=== PATIENT | male | born 1990 | race Hispanic/Latino ===

== ENCOUNTER 2018-03-19 11:41 | Emergency (ER) | payer OTHER ==
[2018-03-19 14:03] LABS: BASO # 0.1 K/uL (0.0-0.2); BASO % 1.2 % (0.0-2.0); EOS # 0.2 K/uL (0.0-0.7); EOS % 2.9 % (0.0-4.0); LYMPH # 1.8 K/uL (1.0-4.3); LYMPH % 24.1 % (20.0-40.0); MEAN CORPUSCULAR HEMOGLOBIN 29.3 pg (27.0-31.0); MEAN CORPUSCULAR HGB CONC 33.6 g/dL (33.0-37.0); MEAN PLATELET VOLUME 8.7 fL (7.2-11.7); MONO # 0.5 K/uL (0.0-0.8); MONO % 6.7 % (0.0-10.0); NEUT % 65.1 % (50.0-75.0); RBC 4.45 Mil/uL (4.40-5.90); RED CELL DISTRIBUTION WIDTH 13.2 % (11.5-14.5); WHITE BLOOD COUNT 7.7 K/uL (4.8-10.8)
[2018-03-19 14:29] LABS: ALB/GLOB RATIO 1.1 (1.0-2.1); ALBUMIN 3.9 g/dL (3.5-5.0); ALT/SGPT 66 U/L (21-72); AST/SGOT 44 U/L (17-59); BLOOD UREA NITROGEN 19 mg/dL (9-20); CALCIUM 8.8 mg/dl (8.6-10.4); GFR NON-AFRICAN AMERICAN > 60
[2018-03-19] MEDS ORDERED: Tmp-Smz 800 mg-160 mg DS Tab PO STA (14:36)
--- NOTE | 2018-03-19 14:36 | C.PDOC ---
History Of Present Illness 28 y/o male, in police custody, comes in complaining of bilateral forearm and right hand pain. Patient admits to using intravenous drugs. Denies fever. Patient was seen in another hospital 3-4 weeks ago but left prior to completion of treatment. Patient did not seek medical attention after that ED visit. Denies any other associated symptoms. Chief Complaint (Nursing): Upper Extremity Problem/Injury History Per: Patient History/Exam Limitations: no limitations Onset/Duration Of Symptoms: Days Current Symptoms Are (Timing): Still Present Past Medical History Reviewed: Historical Data, Nursing Documentation, Vital Signs Vital Signs: Last Vital Signs Temp 97.8 F 03/19/18 11:54 Pulse 65 03/19/18 11:54 Resp 17 03/19/18 11:54 BP 136/78 03/19/18 11:54 Pulse Ox 97 03/19/18 11:54 Family History: States: No Known Family Hx - Social History Hx Alcohol Use: Yes Hx Substance Use: Yes Review Of Systems Except As Marked, All Systems Reviewed And Found Negative. Constitutional: Negative for: Fever, Chills Cardiovascular: Negative for: Chest Pain Respiratory: Negative for: Shortness of Breath Gastrointestinal: Negative for: Abdominal Pain Musculoskeletal: Positive for: Hand Pain (Right), Other (Bilateral forearm pain) Skin: Negative for: Rash Neurological: Negative for: Weakness, Numbness Physical Exam - Physical Exam Appears: Non-toxic, No Acute Distress Skin: Warm, Dry Head: Atraumatic, Normacephalic Eye(s): bilateral: Normal Inspection Oral Mucosa: Moist Neck: Supple Chest: Symmetrical Cardiovascular: Rhythm Regular, No Murmur Respiratory: Normal Breath Sounds, No Rales, No Rhonchi, No Wheezing Gastrointestinal/Abdominal: Soft, No Tenderness Extremity: Capillary Refill (less than 2 seconds), Other (Right hand mildly erythematous and warm to touch) Extremity: Bilateral: Other (+track horowitz on both forearms, no signs of drainage or infection) Pulses: Left Radial: Normal, Right Radial: Normal Neurological/Psych: Oriented x3, Normal Speech ED Course And Treatment - Laboratory Results Result Diagrams: 03/19/18 13:59 03/19/18 13:59 Lab Results: Total Bilirubin 0.6 mg/dL (0.2-1.3) 03/19/18 13:59 AST 44 U/L (17-59) 03/19/18 13:59 ALT 66 U/L (21-72) 03/19/18 13:59 Alkaline Phosphatase 75 U/L (38-126) 03/19/18 13:59 Total Protein 7.3 g/dL (6.3-8.3) 03/19/18 13:59 Albumin 3.9 g/dL (3.5-5.0) 03/19/18 13:59 Globulin 3.4 gm/dL (2.2-3.9) 03/19/18 13:59 Albumin/Globulin Ratio 1.1 (1.0-2.1) 03/19/18 13:59 O2 Sat by Pulse Oximetry: 97 (RA) Pulse Ox Interpretation: Normal Medical Decision Making Medical Decision Making: Plan: --Labs --Bactrim PO --Keflex PO Disposition - Disposition Referrals: [facility] [Outside] [facility] [Outside] Disposition: HOME/ ROUTINE Disposition Time: 14:30 Condition: GOOD Additional Instructions: SIRISHA STINSON, thank you for letting us take care of you today. The emergency medical care you received today was directed at your acute symptoms. If you were prescribed any medication, please fill it and take as directed. It may take several days for your symptoms to resolve. Return to the Emergency Department if your symptoms worsen, do not improve, or if you have any other problems. Please contact your doctor or call one of the physicians/clinics you have been referred to that are listed on the Patient Visit Information form that is included in your discharge packet. Bring any paperwork you were given at discharge with you along with any medications you are taking to your follow up visit. Our treatment cannot replace ongoing medical care by a primary care provider outside of the emergency department. Thank you for allowing the [facility] team to be part of your care today. PATIENT IS MEDICALLY AND PSYCHIATRICALLY CLEARED FOR INCARCERATION. Follow up with the clinic in 5-7 days for re-evaluation and further management. Prescriptions: Cephalexin [Keflex] 500 mg PO TID #21 capsule Sulfamethoxazole/Trimethoprim [Bactrim DS 800 mg-160 mg] 1 tab PO BID #14 tab Instructions: Drug Abuse and Drug Addiction (DC), Cellulitis (Skin Infection), Adult (DC) Forms: [employer] ([place]) - Clinical Impression Clinical Impression: Cellulitis - Scribe Statement The provider has reviewed the documentation as recorded by the Nirajibmarc Olvera Provider Attestation: All medical record entries made by the Nirajibe were at my direction and personally dictated by me. I have reviewed the chart and agree that the record accurately reflects my personal performance of the history, physical exam, medical decision making, and the department course for this patient. I have also personally directed, reviewed, and agree with the discharge instructions and disposition.
[2018-03-19] MEDS ORDERED: Tmp-Smz 800 mg-160 mg DS Tab ONE (14:51)
[2018-03-19 15:11] VITALS: BP 135/74; PULSE 66; RESP 16; TEMP 97.9
[2018-03-19 23:49] VITALS: O2SAT 97
== END 2018-03-19 15:10 | disposition home or self-care (01) ==
LOC: C.ER 11:41
DX: L03.113 Cellulitis of right upper limb (principal)